=== PATIENT | female | born 1955 | race Caucasian/White ===

== ENCOUNTER 2017-08-12 09:50 | Outpatient (CLI) | payer MEDICARE, OTHER ==
--- NOTE | 2017-08-12 11:56 | PRG ---
DATE OF SERVICE: 08/12/2017 HISTORY: Ms. Cristy Calderon is a very pleasant 62-year-old who [facility] for evalua tion of a wound of the right elbow. The patient was last seen in the [facility] on 02/11/2017. At this time, the ulceration of the right elbow had healed completely. Dressing changes were discontin ued and the patient was discharged from clinic with followup on a p.r.n. basis. The patient states t emma that her right elbow wound recently recurred. She presents to clinic today with the ulceration dressed with Aquacel followed by bordered gauze. She is also wearing a protective device over her ri ght elbow. PHYSICAL EXAMINATION: VITAL SIGNS: Temperature 97.5, pulse 71, respirations 16, blood pressure 120/70. EXTREMITIES: The ulceration of the right elbow measures approximately 0.9 x 0.7 cm. Granulation tis ad is visible within the wound margins. No purulent drainage is associated with the wound. No eryt emily of the skin surrounding the wound is present. No maceration of the skin of the periwound is not ed. ASSESSMENT AND PLAN: 1. Right elbow ulceration as described above. Dressing changes of Promogran, Aquacel, and bordered gauze will be initiated today. These dressing changes are to be performed 3 times per week after pat ansing and irrigation. I will see Ms. Calderon again in 4 weeks. Ms. Calderon understands and is in agree ment with the preceding treatment plan. 2. Spina bifida.
[2017-08-12] MEDS ORDERED: Sodium Chloride 0.9% 15 ML NEB ONE (21:22)
== END 2017-08-12 09:51 | disposition home or self-care (01) ==
LOC: WCC 09:50
PROVIDERS: ATTEND Family Medicine
DX: L98.499 Non-pressure chronic ulcer of skin of other sites with unspecified severity (principal); Q05.9 Spina bifida, unspecified
CPT/HCPCS: A4218

== ENCOUNTER 2017-09-02 09:50 | Inpatient (IN) | payer MEDICARE ==
[2017-09-02 10:29] LABS: #Eosinphils 0.3 thou/uL (0.0-0.7); #Lymphocytes 1.4 thou/uL (1.20-3.40); #Monocytes 0.6 thou/uL (0.11-0.59); #Neutrophils 6.3 thou/uL (1.40-6.50); %Basophils 0.3 % (0.0-1.0); %Eosinophils 3.9 % (0.0-10.0); %Lymphocytes 16.4 % (21.0-51.0); %Monocytes 6.9 % (0.0-10.0); %Neutrophils 72.4 % (42.0-75.0); Hemoglobin 10.9 g/dL (12.0-16.0); Mean Corpuscular HGB CONC 31.9 g/dL (32.0-36.0); Mean Corpuscular Hemoglobin 29.8 pg (27.0-31.0); Mean Corpuscular Volume 93.3 fl (81.0-99.0); Mean Platelet Volume 7.4 fL (7.4-10.4); Platelet Count 278 thou/uL (130-400); RBC Distribution Width 13.3 % (11.5-14.5); Red Blood Cell (RBC) Count 3.65 mill/uL (4.20-5.40); White Blood Cell (WBC) Count 8.8 thou/uL (4.8-10.8)
--- NOTE | 2017-09-02 10:31 | RAD ---
CHEST 1 VIEW: Date: 09/02/17 HISTORY: Cough. FINDINGS: No comparison. The cardiac silhouette is magnified by projection. Pulmonary vasculature is engorged and accentuated by shallow inspiration. Bilateral perihilar infiltrates are apparent. There is no lobar consolidation or evidence of pneumothorax. IMPRESSION: Pulmonary vascular congestion. POS: [facility]
[2017-09-02 10:47] LABS: ALT (SGPT) 21 U/L (8-55); AST (SGOT) 22 U/L (5-34); Albumin 3.4 g/dL (3.4-4.8); Alkaline Phosphatase 116 U/L (40-150); Anion Gap 11 mmol/L (10-20); BUN (Urea Nitrogen) 12 mg/dL (9.8-20.1); Bilirubin, Total 0.6 mg/dL (0.2-1.2); Calc. Creatinine Clearance 0 mL/min (70-130); Calcium 9.1 mg/dL (7.8-10.44); Carbon Dioxide 35 mmol/L (23-31); Chloride 95 mmol/L (98-107); Estimated GFR-MDRD Greater than 90; Globulin 4.3 g/dL (2.4-3.5); Glucose 98 mg/dL (80-115); Potassium 4.1 mmol/L (3.5-5.1); Protein, Total 7.7 g/dL (6.0-8.3); Sodium 137 mmol/L (136-145)
[2017-09-02 11:40] LABS: CKMB 0.2 ng/mL (0-6.6); Troponin I 0.059 ng/mL (< 0.028)
[2017-09-02] MEDS ORDERED: Furosemide 40 MG/4 ML VIAL ONE (11:48)
[2017-09-02] MEDS ORDERED: Albuterol Sulfate 2.5 mg/3 ml Neb NEB PRN (13:15)
[2017-09-02] MEDS ORDERED: Acetaminophen 325 MG TAB PO PRN (13:30)
[2017-09-02] MEDS ORDERED: HYDROcodone/Acetaminophen 5/325 mg Tablet PO PRN (13:30)
[2017-09-02] MEDS ORDERED: FLU VACC QS2017-18 36 mo. & older 0.5 ML SYRINGE IM ONE (14:00)
[2017-09-02 14:22] LABS: Troponin I 0.057 ng/mL (< 0.028)
[2017-09-02 16:59] LABS: Troponin I 0.035 ng/mL (< 0.028)
--- NOTE | 2017-09-02 17:09 | HP ---
DATE OF SERVICE: 09/02/2017 CHIEF COMPLAINT: Shortness of breath. HISTORY OF PRESENT ILLNESS: This is a 62-year-old white female. She is living in an assisted living . She was developing some fluid in her lower extremities for the past 2-3 weeks and she is started o n diuretic, Lasix. For the past 2 days, she developed a fever of 101 and she was started on Tylenol. She was noted that today she is really very short of breath and coughing and saw her saturations dr opped to 70%, so the patient was brought to the ER for further evaluation. When the patient arrived in the ER, she had a chest x-ray showing evidence of pulmonary edema, but her BNP level was normal. She had evidence of fluid overload and she had evidence of fluid overload and was checked for influen za A and B which came back negative and she did mention that she had a flu shot this season. She als o had a pneumonia shot. The patient denies having any chest pain at this time. No nausea, no vomiting, no diarrhea, no const ipation. She does have elevated troponins in the ER, which are trending down. Most likely, this cou ld be exertional, demand ischemia. The patient did not have any other known medical issues except that she has a history of spina bifida since and she has been disabled using a walker. PAST MEDICAL HISTORY: History of spina bifida, wheelchair bound. PAST SURGICAL HISTORY: The patient had hysterectomy many years ago. SOCIAL HISTORY: Patient is a nonsmoker. No history of alcohol, no history of illicit drug use. FAMILY HISTORY: No significant family history of coronary artery disease or any premature deaths in the family. REVIEW OF SYSTEMS: All 12 systems are reviewed with the patient thoroughly and found to be negative at this time except the ones described in HPI. The following complete review of systems was negative, unless otherwise mentioned in the HPI or below : Constitutional: Weight loss or gain, sense of well-being, ability to conduct usual activities, ex ercise tolerance. Skin/Breast: Rash, itching, changes in hair growth or loss, nail changes, breast lumps, tenderness, swelling, nipple discharge. Eyes: Vision, double vision, tearing, blind spots, p ain. ENT/Mouth: Headaches (location, time of onset, duration, precipitating factors), vertigo, ligh theadedness, injury. Vision, double vision, tearing, blind spots, pain, nose bleeding, colds, obstruc tion, discharge, dental difficulties, gingival bleeding, dentures, neck stiffness, pain, tenderness, masses in thyroid or other areas. Cardiovascular: Precordial pain, substernal distress, palpitation s, syncope, dyspnea on exertion, orthopnea, nocturnal paroxysmal dyspnea, edema, cyanosis, hypertensi on, heart murmurs, varicosities, phlebitis, claudication. Respiratory: Pain, shortness of breath, w heezing, stridor, cough, hemoptysis, fever or night sweats. Gastrointestinal: Poor appetite, dyspha johana, indigestion, abdominal pain, heartburn, eructation, nausea, vomiting, hematemesis, jaundice, con stipation, or diarrhea, abnormal stools (kristie-colored, tarry, bloody, greasy, foul smelling), flatule nce, hemorrhoids, recent changes in bowel habits. Genitourinary: Urgency, frequency, dysuria, noctu pj, hematuria, polyuria, oliguria, unusual (or change in) color of urine, stones, hesitancy, change in size of stream, dribbling, acute retention or incontinence, libido, potency. Musculoskeletal: Pa in, swelling, redness or heat of muscles or joints, limitation, of motion, muscular weakness, atrophy , cramps. Neurologic/Psychiatric: Convulsions, paralyses, tremor, incoordination, paresthesias, dif ficulties with memory of speech, sensory or motor disturbances, or muscular coordination (ataxia, olamide mor), emotional problems, anxiety, depression, previous psychiatric care, unusual perceptions, halluc inations. Allergy/Immunologic: Skin rash, anemia, bleeding tendency, polydipsia, polyuria, intolera nce to heat or cold. ALLERGIES: CLINDAMYCIN AND PENICILLIN. HOME MEDICATIONS: None. PHYSICAL EXAMINATION: VITAL SIGNS: Blood pressure is 131/78, heart rate is 97, respiratory rate is 22, saturations 98%. GENERAL: The patient is moderately built and moderately nourished. She does not appear to be in acu te distress at this time. She is seen sitting at the bed 45 degrees inclination. HEENT: Atraumatic, normocephalic. PERRLA. Extraocular movements were intact. Oral mucosa is pink and moist. CARDIOVASCULAR: S1, S2 normal. No murmurs, rubs or gallops. LUNGS: Bilateral air entry was equal. Crackles were noted in the lower bases bilaterally. No acute signs of respiratory distress. ABDOMEN: Soft, nontender, no guarding, no rebound tenderness. Bowel sounds normal. MUSCULOSKELETAL: The patient has paraplegic below waist and has some puffy legs bilaterally with non pitting edema most likely lymphadenitis type. NEUROLOGIC: Cranial nerve examination II-XII are intact. No other focal neurologic deficits were no kevin except from the lower extremities being a paraplegic from . NECK: No thyromegaly, no JVD was noted. LABORATORY DATA: WBC 8.8, hemoglobin is 10.8, hematocrit is 34.1, platelets are 278. Sodium 137, po tassium 4.1, chloride is 95, BUN 12, creatinine 0.6. BNP 31.2, troponin 0.059, 0.057. Chest x-ray showing evidence of pulmonary edema. Chest x-ray has been reviewed by me. ASSESSMENT AND PLAN: 1. Acute hypoxic respiratory failure. 2. Acute diastolic congestive heart failure. 3. Possible viral pneumonia. 4. Non-ST elevation myocardial infarction. PLAN: 1. To start the patient on IV Lasix 40 mg IV b.i.d. and will closely monitor this patient. We will continue the patient on nasal cannula oxygen and will do DuoNeb treatments every 4-6 hours as needed. 2. Patient has elevated troponins. It could be from the demand ischemia from some pulmonary congest ion. We will consult Cardiology and will order a 2D echo to look for any evidence of coronary artery disease to look for any wall motion abnormality. 3. We will start the patient on Lovenox, levofloxacin 500 mg IV daily prophylactically to look for a ny development of bacterial pneumonia. We will send for the blood cultures and sputum cultures. 4. DVT prophylaxis. Lovenox 40 mg subcu daily. I spent 75 minutes with this patient. Of this, one hour is critical care time.
[2017-09-02] MEDS: Furosemide 40 MG/4 ML VIAL SLOW IVP SCH (17:43)
[2017-09-02] MEDS: Docusate 100 MG CAP PO SCH (20:46)
[2017-09-02] MEDS ORDERED: Carvedilol 3.125 MG TAB PO SCH (21:00)
--- NOTE | 2017-09-03 03:07 | CON ---
DATE OF CONSULTATION: 09/02/2017 REASON FOR CONSULTATION: Shortness of breath. HISTORY OF PRESENT ILLNESS: Ms. Calderon is a delightful 62-year-old woman. She has a long history of spina bifida. She has been unable to ambulate for quite some time due to spina bifida. She lives in a long term. She has been doing well, but the last day or two she had some fever to 101 and then started having hypoxemia, her oxygen saturations dropped to 70%. She was brought to the emergency room for evaluation. Chest x-ray was thought to be possibly pulmonary edema, but looks li ke there is a very poor inspiration, so it is unclear whether it is pulmonary edema, she was checked for influenza A and B which was negative. No chest pain. PAST MEDICAL HISTORY: Spina bifida. She is wheelchair bound. PAST SURGICAL HISTORY: Previous hysterectomy. SOCIAL HISTORY: Nonsmoker. No alcohol or tobacco. FAMILY HISTORY: Negative for heart disease at a young age. REVIEW OF SYSTEMS: Constitutional: No significant weight gain or loss. Vision: No changes. Hearing: No changes. Pu lmonary: No cough or wheezing. Gastrointestinal: No nausea, vomiting, diarrhea. PHYSICAL EXAMINATION: GENERAL: This is a pleasant 62-year-old woman in no distress. VITAL SIGNS: Her blood pressure 128/73, pulse is in the 90s. HEENT: Sclerae nonicteric. Mouth mucous membranes moist. NECK: Supple, no lymphadenopathy. LUNGS: Clear, no wheezing, rales or rhonchi. CARDIAC: Normal S1, normal S2. I do not hear a murmur, rub or gallop. ABDOMEN: Soft, nontender. EXTREMITIES: No clubbing or cyanosis. There is moderate edema. SKIN: Warm and dry. LABORATORY DATA: The potassium was 4.1. BNP surprisingly was normal at 31.2. Troponin 0.059, indet erminate. Chest x-ray was reported as possible pulmonary edema, but looking at the x-ray, it looks l buddy they are very shallow inspiration. I am really not convinced that it shows pulmonary edema, it s eems to me more like just a shallow inspiration, but I do not really think there is pulmonary edema. Echocardiogram showed normal left ventricular function, mild right ventricular dilatation. ASSESSMENT: 1. Shortness of breath of uncertain etiology, possibly diastolic dysfunction. 2. History of spina bifida, wheelchair bound. PLAN: 1. Would stop carvedilol at this time. The systolic function is normal and beta blockers are likely not to be helpful with diastolic dysfunction. 2. Continue diuretics now. 3. Agree with rechecking BNP. We will continue to follow with you.
[2017-09-03] MEDS: Furosemide 40 MG/4 ML VIAL SLOW IVP SCH ×2 (05:05→14:05)
[2017-09-03 05:27] LABS: #Eosinphils 0.2 thou/uL (0.0-0.7); #Lymphocytes 1.3 thou/uL (1.20-3.40); #Monocytes 0.7 thou/uL (0.11-0.59); #Neutrophils 6.2 thou/uL (1.40-6.50); %Basophils 0.2 % (0.0-1.0); %Eosinophils 2.7 % (0.0-10.0); %Lymphocytes 15.4 % (21.0-51.0); %Monocytes 8.3 % (0.0-10.0); %Neutrophils 73.4 % (42.0-75.0); Hemoglobin 10.5 g/dL (12.0-16.0); Mean Corpuscular HGB CONC 31.8 g/dL (32.0-36.0); Mean Corpuscular Hemoglobin 29.6 pg (27.0-31.0); Mean Corpuscular Volume 93.1 fl (81.0-99.0); Mean Platelet Volume 7.8 fL (7.4-10.4); Platelet Count 261 thou/uL (130-400); RBC Distribution Width 13.2 % (11.5-14.5); Red Blood Cell (RBC) Count 3.53 mill/uL (4.20-5.40); White Blood Cell (WBC) Count 8.5 thou/uL (4.8-10.8)
[2017-09-03 05:33] LABS: Anion Gap 12 mmol/L (10-20); BUN (Urea Nitrogen) 14 mg/dL (9.8-20.1); Calc. Creatinine Clearance 127 mL/min (70-130); Calcium 9.2 mg/dL (7.8-10.44); Carbon Dioxide 33 mmol/L (23-31); Chloride 92 mmol/L (98-107); Estimated GFR-MDRD Greater than 90; Glucose 105 mg/dL (80-115); Potassium 4.1 mmol/L (3.5-5.1); Sodium 133 mmol/L (136-145)
[2017-09-03] MEDS ORDERED: Sodium Chloride 0.9% 10 ML ONE (07:51)
[2017-09-03] MEDS: Docusate 100 MG CAP PO SCH ×2 (08:21→20:41)
[2017-09-03] MEDS: Enoxaparin Sodium 40 MG/0.4 ML SYRINGE SC SCH (08:22)
[2017-09-03] MEDS ORDERED: Lisinopril 2.5 MG TAB PO SCH (09:00)
[2017-09-03] MEDS ORDERED: Spironolactone 25 MG TAB PO SCH (09:00)
[2017-09-03 10:22] VITALS: BMI 37.0
[2017-09-03] MEDS ORDERED: Sodium Chloride 0.9% 1,000 ML IV SCH (14:00)
--- NOTE | 2017-09-03 14:24 | PDOC.PN ---
- Subjective Encounter Start Date: 09/03/17 Encounter Start Time: 14:20 Subjective: f/u for dyspnea and fever and ? CHF with normal BNP. Nsg reports -: hypotension after giving Lasix and Spironolactone. - Objective Resuscitation Status: Resuscitation Status FULL:Full Resuscitation MAR Reviewed: Yes Vital Signs & Weight: Vital Signs (12 hours) Temp Pulse Resp BP BP Pulse Ox 09/03/17 11:34 98.6 F 74 22 H 87/48 L 91 L 09/03/17 08:21 97 136/75 09/03/17 08:09 99.3 F 97 22 H 136/75 97 09/03/17 04:56 98.5 F 100 18 124/70 92 L Weight Admit Weight 182 lb 6.42 oz Weight 183 lb 9.6 oz I&O: 09/02/17 09/03/17 09/04/17 06:59 06:59 06:59 Intake Total 580 Output Total 1150 Balance -570 Result Diagrams: 09/03/17 04:51 09/03/17 04:51 Additional Labs: Accuchecks 09/03/17 11:16 POC Glucose 137 H Microbiology 09/02/17 10:20 Nasal swab Influenza Types A,B Direct EIA - Final 09/02/17 16:19 Venous blood - Left Hand Blood Culture - Preliminary Specimen has been received and culture in progress. No Growth to date. 09/02/17 16:09 Venous blood - Right Arm Blood Culture - Preliminary Specimen has been received and culture in progress. No Growth to date. Laboratory Tests 09/02/17 09/02/17 09/02/17 10:19 10:19 13:28 Hgb 10.9 L Troponin I 0.059 H 0.057 H B-Natriuretic Peptide 09/02/17 09/03/17 16:09 04:51 Hgb Troponin I 0.035 H B-Natriuretic Peptide 21.6 Radiology Reviewed by me: Yes (2D Echo - EF 55%, mild pulm htn) EKG Reviewed by me: Yes (Tele - SR in 90's) Phys Exam - Physical Examination alert, mild distress HEENT: PERRLA, oral pharynx no lesions Neck: no JVD, supple diminished in bases Cardiovascular: RRR Gastrointestinal: soft, non-tender, no distention, positive bowel sounds minimal peripheral edema Musculoskeletal: pulses present Neurological: moves all 4 limbs Psychiatric: A&O x 3 Skin: normal turgor, cap refill <2 seconds Dx/Plan (1) Acute respiratory failure with hypoxia Code(s): J96.01 - ACUTE RESPIRATORY FAILURE WITH HYPOXIA Status: Acute Comment: ? etiology, ? viral syndrome or early pneumonitis, continue O2 supplementation, Duonebs, Levaquin (2) Dyspnea Code(s): R06.00 - DYSPNEA, UNSPECIFIED Status: Acute Comment: ? etiology, see above, pulmonary support (3) Febrile illness, acute Code(s): R50.9 - FEVER, UNSPECIFIED Status: Acute Comment: ? viral syndrome , monitor temp curve (4) Hypotension, iatrogenic Code(s): I95.89 - OTHER HYPOTENSION Status: Acute Comment: D/C all diuretics , d/c Lisinopril, IV NS 1L bolus now, follow BP trend (5) Elevated troponin I level Code(s): R74.8 - ABNORMAL LEVELS OF OTHER SERUM ENZYMES Status: Acute Comment: ? demand ischemic state, follow clinically - Plan continue antibiotics, respiratory therapy, DVT proph w/SCDs IV NS bolus x 1L now -: D/C Lasix, Spironolactone and Lisinopril -: Consider Respiratory Virus Panel -: Contiue Levaquin -: Check Respiratory Virus Panel * .
[2017-09-03] MEDS ORDERED: CICLOPIROX TOP PRN (14:29)
[2017-09-03] MEDS: Sodium Chloride 0.9% 1,000 ML IV SCH (16:15)
[2017-09-03] MEDS ORDERED: Enoxaparin Sodium 80 MG/0.8 ML SYRINGE SC SCH (19:30)
[2017-09-03] MEDS: Ondansetron HCl/PF 4 MG/2 ML Vial IVP PRN (20:41)
[2017-09-04] MEDS: predniSONE 50 MG TAB PO SCH ×3 (00:14→11:32)
[2017-09-04] MEDS: Sodium Chloride 0.9% 1,000 ML IV SCH (00:14)
--- NOTE | 2017-09-04 00:29 | PRG ---
DATE OF SERVICE: 09/03/2017 SUBJECTIVE: Ms. Calderon had drop in blood pressure after intravenous diuretic. She said she is really not feeling any better. In fact, her blood pressure got as low as 76/50, it is up to 93/56 now. OBJECTIVE: VITAL SIGNS: Her blood pressure as outlined above. LUNGS: Clear. CARDIAC: Normal S1, normal S2. ABDOMEN: Soft, nontender. EXTREMITIES: There is mild edema. ASSESSMENT: 1. Hypoxemia of uncertain etiology. 2. Initially thought that perhaps she had diastolic heart failure, but she has had 2 normal BNPs and the chest x-ray to my interpretation really did not look like pulmonary edema. It does consider pul monary embolism. PLAN: 1. Diuretics have been stopped. 2. Give intravenous fluid. 3. She is allergic to IODINE, we will pretreat for iodine allergy then proceed with CT pulmonary ang iogram tomorrow.
[2017-09-04 05:28] LABS: #Eosinphils 0.1 thou/uL (0.0-0.7); #Lymphocytes 0.9 thou/uL (1.20-3.40); #Monocytes 0.3 thou/uL (0.11-0.59); #Neutrophils 7.6 thou/uL (1.40-6.50); %Basophils 0.3 % (0.0-1.0); %Eosinophils 0.9 % (0.0-10.0); %Lymphocytes 10.3 % (21.0-51.0); %Monocytes 3.8 % (0.0-10.0); %Neutrophils 84.7 % (42.0-75.0); Mean Corpuscular HGB CONC 32.3 g/dL (32.0-36.0); Mean Corpuscular Hemoglobin 30.2 pg (27.0-31.0); Mean Corpuscular Volume 93.3 fl (81.0-99.0); Mean Platelet Volume 7.7 fL (7.4-10.4); Platelet Count 211 thou/uL (130-400); RBC Distribution Width 13.4 % (11.5-14.5); Red Blood Cell (RBC) Count 2.98 mill/uL (4.20-5.40); White Blood Cell (WBC) Count 8.9 thou/uL (4.8-10.8)
[2017-09-04 05:35] LABS: Anion Gap 11 mmol/L (10-20); BUN (Urea Nitrogen) 22 mg/dL (9.8-20.1); Calc. Creatinine Clearance 92 mL/min (70-130); Calcium 8.3 mg/dL (7.8-10.44); Carbon Dioxide 30 mmol/L (23-31); Chloride 95 mmol/L (98-107); Estimated GFR-MDRD 69; Glucose 114 mg/dL (80-115); Potassium 4.1 mmol/L (3.5-5.1); Sodium 132 mmol/L (136-145)
[2017-09-04] MEDS ORDERED: Sodium Chloride 0.9% 1,000 ML IV SCH (08:31)
[2017-09-04] MEDS: Enoxaparin Sodium 40 MG/0.4 ML SYRINGE SC SCH (09:05)
[2017-09-04] MEDS: Docusate 100 MG CAP PO SCH ×2 (09:05→21:54)
[2017-09-04] MEDS ORDERED: diphenhydrAMINE 50 MG CAP PO SCH (11:30)
--- NOTE | 2017-09-04 13:45 | CT ---
CTA OF CHEST WITH CONTRAST: Date: 09/04/17 HISTORY: Low oxygen saturation and hypoxia. TECHNIQUE: Multiple contiguous axial images were obtained in a CTA of the chest with contrast per pulmonary embo lism protocol. 3D oblique MIP reformats and direct coronal reformats were performed. FINDINGS: The pulmonary arteries are well opacified without filing defects to suggest pulmonary emboli. The hea rt is normal in size without focal cardiac abnormality. No hilar or mediastinal lymphadenopathy seen. Atelectasis is seen in both lung bases, right greater than left. There is also atelectasis in the rig ht apex. No focal infiltrates are seen in the lungs. No suspicious pulmonary nodules are seen. No pne umothorax or pleural effusions are seen. There is a large diaphragmatic hernia containing predominantly peritoneal fat. This hernia is in the region of the gastroesophageal junction, but no significant herniation of stomach upward is seen. Degenerative changes are seen in the spine. The visualized subdiaphragmatic structures are unremarkab le. Degenerative changes are seen in the right shoulder. IMPRESSION: 1. No evidence of pulmonary thromboembolism. 2. Diaphragmatic hernia containing fat. POS: [facility]
--- NOTE | 2017-09-04 17:44 | PRG ---
DATE OF SERVICE: 09/04/2017 SUBJECTIVE: Ms. Calderon is doing better today. OBJECTIVE: VITAL SIGNS: Blood pressure is still relatively low 96/58, pulse 86 and regular. LUNGS: Clear. CARDIAC: Normal S1, normal S2. ABDOMEN: Soft, nontender. EXTREMITIES: Mild edema. CT pulmonary angiogram was negative for pulmonary embolism. CT did show atelectasis. BNP again is low. ASSESSMENT: 1. Hypoxemia. I suspect this is related to atelectasis from her scoliosis. Diaphragm is very high on the chest x-ray and her lungs are likely compressed. 2. No evidence of any congestive heart failure. 3. No pulmonary embolism. PLAN: For completeness to do adenosine Cardiolite stress testing, needed a two day protocol. The pa tient may likely to have an inferior defect. These diaphragms are extremely high. No further recomm endations at this point. Okay to Hep-Lock the IV as mentioned. No evidence of heart failure. She h ad hypotension with diuretics and no evidence of heart failure at all.
--- NOTE | 2017-09-04 18:54 | PDOC.PN ---
- Subjective Encounter Start Date: 09/04/17 Encounter Start Time: 18:40 Subjective: f/u for SOB, fever and ? pneumonitis and hypotension. Overall feeling -: better. Hypotension resolved and UOP increased with IVF's. - Objective Resuscitation Status: Resuscitation Status FULL:Full Resuscitation MAR Reviewed: Yes Vital Signs & Weight: Vital Signs (12 hours) Temp Pulse Resp BP Pulse Ox 09/04/17 16:58 87 20 99/52 L 92 L 09/04/17 14:05 98.1 F 83 19 113/60 92 L 09/04/17 08:58 98.6 F 86 20 96/58 L 97 Weight Admit Weight 182 lb 6.42 oz Weight 189 lb I&O: 09/03/17 09/04/17 09/05/17 06:59 06:59 06:59 Intake Total 580 2540 1770 Output Total 1150 750 800 Balance -570 1790 970 Result Diagrams: 09/04/17 05:08 09/04/17 05:08 Additional Labs: Microbiology 09/03/17 17:15 Nasopharyngeal swab Respiratory Virus Panel (PCR) (FLAVIO) - Final 09/02/17 10:20 Nasal swab Influenza Types A,B Direct EIA - Final 09/02/17 16:19 Venous blood - Left Hand Blood Culture - Preliminary Specimen has been received and culture in progress. No Growth to date. 09/02/17 16:19 Venous blood - Left Hand Blood Culture - Preliminary NO GROWTH AT 48 HOURS 09/02/17 16:09 Venous blood - Right Arm Blood Culture - Preliminary Specimen has been received and culture in progress. No Growth to date. 09/02/17 16:09 Venous blood - Right Arm Blood Culture - Preliminary NO GROWTH AT 48 HOURS Laboratory Tests 09/02/17 09/02/17 09/02/17 10:19 10:19 13:28 Hgb 10.9 L Sodium Troponin I 0.059 H 0.057 H B-Natriuretic Peptide 09/02/17 09/03/17 09/03/17 16:09 04:51 04:51 Hgb Sodium 133 L Troponin I 0.035 H B-Natriuretic Peptide 21.6 09/03/17 09/04/17 04:51 05:08 Hgb 10.5 L Sodium Troponin I B-Natriuretic Peptide 27.0 Radiology Reviewed by me: Yes (CTA chest - no PE, +diaphragmatic hernia) EKG Reviewed by me: Yes (Tele - SR in 70's) Phys Exam - Physical Examination Constitutional: NAD HEENT: PERRLA, oral pharynx no lesions Neck: no JVD, supple Respiratory: no wheezing, clear to auscultation bilateral Cardiovascular: RRR Gastrointestinal: soft, non-tender, no distention, positive bowel sounds Musculoskeletal: no edema, pulses present Psychiatric: A&O x 3 Skin: normal turgor, cap refill <2 seconds Dx/Plan (1) Acute respiratory failure with hypoxia Code(s): J96.01 - ACUTE RESPIRATORY FAILURE WITH HYPOXIA Status: Acute Comment: ? etiology, ? viral syndrome or early pneumonitis, continue O2 supplementation, Duonebs, Levaquin, Respiratory virus panel negative (2) Dyspnea Code(s): R06.00 - DYSPNEA, UNSPECIFIED Status: Acute Comment: ? etiology, see above, pulmonary support (3) Febrile illness, acute Code(s): R50.9 - FEVER, UNSPECIFIED Status: Acute Comment: ? viral syndrome , monitor temp curve (4) Hypotension, iatrogenic Code(s): I95.89 - OTHER HYPOTENSION Status: Acute Comment: D/C all diuretics , d/c Lisinopril, IV NS 1L bolus now, follow BP trend (5) Elevated troponin I level Code(s): R74.8 - ABNORMAL LEVELS OF OTHER SERUM ENZYMES Status: Acute Comment: ? demand ischemic state, follow clinically - Plan continue antibiotics, respiratory therapy, DVT proph w/SCDs Stable overall -: Continue Levaquin 500mg IV daily another 24h -: Continue Albuterol nebs prn -: Benadryl 25mg po q6h prn congestion -: Plan for Cardiolite stress test per Cardiology recs in am * AM lab: BMP, CBC
[2017-09-04] MEDS: diphenhydrAMINE 25 MG CAP PO PRN (21:54)
[2017-09-04] MEDS: Nystatin Powder 15 GM BOT TOP PRN (21:55)
[2017-09-05 05:23] LABS: #Lymphocytes 1.1 thou/uL (1.20-3.40); #Monocytes 0.9 thou/uL (0.11-0.59); %Basophils 0.2 % (0.0-1.0); %Eosinophils 0.4 % (0.0-10.0); %Lymphocytes 13.8 % (21.0-51.0); %Monocytes 10.8 % (0.0-10.0); %Neutrophils 74.8 % (42.0-75.0); Hemoglobin 9.4 g/dL (12.0-16.0); Mean Corpuscular Hemoglobin 29.8 pg (27.0-31.0); Mean Corpuscular Volume 92.9 fl (81.0-99.0); Platelet Count 237 thou/uL (130-400); Red Blood Cell (RBC) Count 3.16 mill/uL (4.20-5.40); White Blood Cell (WBC) Count 8.1 thou/uL (4.8-10.8)
[2017-09-05 05:51] LABS: Anion Gap 10 mmol/L (10-20); BUN (Urea Nitrogen) 23 mg/dL (9.8-20.1); Calc. Creatinine Clearance 130 mL/min (70-130); Carbon Dioxide 28 mmol/L (23-31); Chloride 99 mmol/L (98-107); Estimated GFR-MDRD Greater than 90; Glucose 121 mg/dL (80-115); Potassium 3.4 mmol/L (3.5-5.1); Sodium 134 mmol/L (136-145)
[2017-09-05] MEDS ORDERED: Regadenoson 0.4 MG/5 ML SYRINGE ONE (08:16)
[2017-09-05] MEDS: Docusate 100 MG CAP PO SCH ×2 (12:55→22:16)
--- NOTE | 2017-09-05 16:12 | PDOC.PN ---
- Subjective Encounter Start Date: 09/05/17 Encounter Start Time: 16:10 Subjective: f/u for hypotension, acute febrile illness and ? pneumonitis. All studies -: negative to date. Awaiting final cardiac stress testing per Cardiology -: recommendations. - Objective Resuscitation Status: Resuscitation Status FULL:Full Resuscitation MAR Reviewed: Yes Vital Signs & Weight: Vital Signs (12 hours) Temp Pulse Resp BP Pulse Ox 09/05/17 11:00 96.7 F L 80 17 99/61 94 L 09/05/17 07:40 97.7 F 71 18 108/62 96 09/05/17 04:25 98 Weight Admit Weight 182 lb 6.42 oz Weight 183 lb 14.4 oz I&O: 09/04/17 09/05/17 09/06/17 06:59 06:59 06:59 Intake Total 2540 2395 Output Total 750 1225 Balance 1790 1170 Result Diagrams: 09/05/17 05:01 09/05/17 05:01 EKG Reviewed by me: Yes (Tele - SR in 60's) Phys Exam - Physical Examination Constitutional: NAD HEENT: PERRLA, oral pharynx no lesions Neck: no JVD, supple Respiratory: no wheezing Cardiovascular: RRR Gastrointestinal: soft, non-tender, no distention, positive bowel sounds Musculoskeletal: no edema, pulses present Psychiatric: A&O x 3 Skin: normal turgor, cap refill <2 seconds Dx/Plan (1) Acute respiratory failure with hypoxia Code(s): J96.01 - ACUTE RESPIRATORY FAILURE WITH HYPOXIA Status: Acute Comment: ? etiology, ? viral syndrome or early pneumonitis, wean O2 supplementation, Duonebs, Levaquin, Respiratory virus panel negative (2) Dyspnea Code(s): R06.00 - DYSPNEA, UNSPECIFIED Status: Acute Comment: ? etiology, see above, pulmonary support (3) Febrile illness, acute Code(s): R50.9 - FEVER, UNSPECIFIED Status: Acute Comment: ? viral syndrome , monitor temp curve (4) Hypotension, iatrogenic Code(s): I95.89 - OTHER HYPOTENSION Status: Acute Comment: D/C all diuretics , d/c Lisinopril, IV NS 1L bolus now, follow BP trend, resolving (5) Elevated troponin I level Code(s): R74.8 - ABNORMAL LEVELS OF OTHER SERUM ENZYMES Status: Acute Comment: ? demand ischemic state, follow clinically - Plan continue antibiotics, social media strategist, DVT proph w/SCDs Stable overall -: Adenosine Stress test today, final results pending -: Wean off all O2 support -: Estrella prn -: Likely home in am after cardiac imaging * .
[2017-09-05] MEDS: diphenhydrAMINE 25 MG CAP PO PRN (16:33)
[2017-09-05] MEDS: Enoxaparin Sodium 40 MG/0.4 ML SYRINGE SC SCH (16:34)
[2017-09-05] MEDS: Nystatin Powder 15 GM BOT TOP PRN (22:16)
[2017-09-06] MEDS: Ondansetron HCl/PF 4 MG/2 ML Vial IVP PRN (03:00)
[2017-09-06] MEDS ORDERED: Sodium Chloride 0.9% 10 ML ONE (07:58)
[2017-09-06] MEDS: Enoxaparin Sodium 40 MG/0.4 ML SYRINGE SC SCH (08:12)
[2017-09-06] MEDS: Docusate 100 MG CAP PO SCH (08:12)
[2017-09-06 11:04] VITALS: BP 147/84; TEMP 97.9
[2017-09-06] MEDS: diphenhydrAMINE 25 MG CAP PO PRN (11:04)
--- NOTE | 2017-09-06 12:09 | NM ---
CARDIAC SPECT WITH EJECTION FRACTION AND WALL MOTION: HISTORY: 62-year-old female with history of chest pain. TECHNIQUE/FINDINGS: Lexiscan sestamibi study performed. Patient was injected with 30.8 mCi technetium-99m sestamibi intra venously for stress images and patient was injected with 31.0 mCi of technetium-99m sestamibi intrave nously for resting images. Multiple SPECT images in the short axis, vertical long axis, and horizontal long axis demonstrate no scan evidence for infarct or ischemia. TID: 0.89 LHR: 0.29 EDV: 46 mL EF: 89% MYOCARDIAL PERFUSION WALL MOTION: Wall motion is normal. IMPRESSION: Normal cardiac SPECT with ejection fraction and wall motion. POS: [facility]
--- NOTE | 2017-09-06 18:18 | PRG ---
DATE OF SERVICE: 09/06/2017 SUBJECTIVE: Ms. Calderon is doing well, no recurrent episodes of chest pain. OBJECTIVE: VITAL SIGNS: Blood pressure 147/84, pulse 70, temperature 97.9. LUNGS: Clear to auscultation. CARDIAC: Regular rate and rhythm. ABDOMEN: Soft, nontender, nondistended. Recent stress study dated 09/06/2017, LVEF estimated at greater than 65%, normal cardiac SPECT. IMPRESSION: Shortness of breath. RECOMMENDATIONS: Recent stress study was negative for ischemia. From a CV standpoint, we would be o danika for discharge with outpatient followup.
--- NOTE | 2017-09-06 20:05 | DIS ---
DATE OF ADMISSION: 09/02/2017 DATE OF DISCHARGE: 09/06/2017 DISCHARGE DIAGNOSES: 1. Acute hypoxic respiratory failure, questionable etiology, suspected pneumonitis. 2. Dyspnea secondary to acute hypoxic respiratory failure, questionable etiology, suspected pneumoni tis, resolved. 3. Acute febrile illness, resolving. 4. Iatrogenic hypotension, resolved. 5. Elevated troponin I secondary to demand ischemia. 6. History of spina bifida. CONSULTATIONS: Dr. Gregory and Dr. Jc with Cardiology Service. PERTINENT LABORATORY AND X-RAY FINDINGS: Sodium ranged between 132-137, potassium ranged between 3.4 -4.1. BNP ranged between 21.6-31.2. Troponin ranged between 0.035-0.0596. CBC showed a white blood cell count ranging between 8.1-8.9, hemoglobin ranged between 9.0-10.9. Blood cultures x2 from 08/24 showed no growth at 48 hours. Influenza A and B antigen dated 09/02/2017 negative. Respirato ry virus panel dated 09/03/2017 negative. Portable chest x-ray dated 09/02/2017 showed pulmonary vas cular prominence. Bilateral perihilar infiltrates. No lobar consolidation or pneumothorax. A 2D tr ansthoracic echocardiogram dated 09/02/2017 showed an ejection fraction of 55-60%. [id number] elevation of pulmonary artery pressure at [address] angiogram of the chest dated 09/04/2017 showed no evidence for pulmonary embolus. Diaphragmatic hernia. Cardiolite stress test dated 09/05/2017 s howed no evidence for reversible or fixed ischemia with a calculated ejection fraction of 89%. HOSPITAL COURSE: The patient was initially admitted to the telemetry unit after presenting with incr eased dyspnea with fever up to 101 degrees Fahrenheit, treated initially with Tylenol and supportive measures. The patient was apparently noted hypoxemic with O2 saturations in the 70% range, evaluated in the emergency room. The patient underwent general chest imaging showing questionable pulmonary v ascular prominence and bilateral perihilar infiltrates. The patient received IV Lasix after initial concern for possible congestive heart failure; however, a 2D transthoracic echocardiogram showed over all preserved ejection fraction in the 55-60% range and BNP analysis showed negative findings. The p atient was discontinued on IV Lasix therapy after developing hypotension and requiring increased oxyg en supplementation. The patient underwent evaluation for the potential infectious process; however, no specific organism was identified and the patient was ruled out for influenza. The patient did rec eive IV Levaquin 500 mg daily throughout the hospital course empirically. The patient did continue t o clinically improve over the hospital course with supportive measures and oxygen supplementation. T he patient underwent cardiac evaluation for ischemic rule out after initial troponin I noted to be mi ldly elevated. Cardiolite stress testing showed no evidence for reversible or fixed ischemia with a calculated ejection fraction of 89%. Current recommendations are for discontinuation of diuretic the rapy, previously taking Lasix prior to admission. Overall, the patient is ready for discharge on . DISCHARGE MEDICATIONS: 1. Levaquin 500 mg 1 tab p.o. daily x5 days. 2. Loprox 0.77% applied topically p.r.n. 3. Nystatin powder one application topically p.r.n. FOLLOWUP: The patient may follow up with her primary care provider, Dr. Rehan De Jesus within 7 days. CONDITION ON DISCHARGE: Stable. ACTIVITY: Ad pablo. DIET: Regular. CODE STATUS: FULL. DISPOSITION: Discharge to [facility], 09/06/2017. Total time preparing and coordinating discharge is 33 minutes.
--- NOTE | 2017-09-26 14:10 | EKG ---
Test Reason : Blood Pressure : / mmHG Vent. Rate : 089 BPM Atrial Rate : 089 BPM P-R Int : 158 ms QRS Dur : 082 ms QT Int : 342 ms P-R-T Axes : 024 -04 003 degrees QTc Int : 416 ms Normal sinus rhythm Cannot rule out Anterior infarct , age undetermined Abnormal ECG Confirmed by MARGARITA DOTY, BRENDA ([id number]), make up editor MULUGETA CAMP ([id number]) on 09/26/2017 2:09:40 PM Referred By: Confirmed By:BRENDA AVILA MD
== END 2017-09-06 18:09 | disposition home or self-care (01) | DRG 193 ==
LOC: ERS 09:50 → ERHOLD 11:37 → 2NO 13:15
PROVIDERS: ADMIT Family Medicine; ATTEND Family Medicine
PROC: 4A02XM4 Measurement of Cardiac Total Activity, External Approach (ICD-10-PCS; principal; 2017-09-02)
DX: J18.9 Pneumonia, unspecified organism (principal); J96.01 Acute respiratory failure with hypoxia; I95.89 Other hypotension; I24.8 Other forms of acute ischemic heart disease; M41.9 Scoliosis, unspecified; I10 Essential (primary) hypertension; Q05.9 Spina bifida, unspecified; Z99.3 Dependence on wheelchair
CPT/HCPCS: 36415; 36416; 51702; 71045; 71275; 78452; 80048; 80053; 82553; 83880; 84484; 85025; 87040; 87633; 89220; 93005; 93017; 93306; 94640; 94760; 96374; A4216; A9500; G8978-GP-CN; G8979-GP-CN; G8980-GP-CN; G8987-GO-CK; G8988-GO-CK; G8989-GO-CK; J1650; J1940; J1956; J2405; J2785; J7620

== ENCOUNTER 2017-09-16 11:11 | Outpatient (CLI) | payer MEDICARE, OTHER ==
--- NOTE | 2017-09-16 13:47 | PRG ---
DATE OF SERVICE: 09/16/2017 HISTORY: Ms. Cristy Calderon is a very pleasant 62-year-old, who presents to the [facility] for evalu ation of a wound of the right elbow. The patient was last seen in the Wound Center on 08/12/2017. T he patient states that, since then, the ulceration of the right elbow had healed completely. She sta bethel that the ulceration, however, recurred. She states that for the recurrent ulceration of her righ t elbow she has been receiving dressing changes of Promogran, Aquacel, and bordered gauze with a decr ease in the dimensions of her right elbow wound. PHYSICAL EXAMINATION: VITAL SIGNS: Temperature 97.4, pulse 73, respirations 16, blood pressure 123/67. EXTREMITIES: The ulceration of the right elbow measures approximately 0.4 x 0.3 cm. The dimensions of the wound at the time of the patient's visit on 08/12/2017 were approximately 0.9 x 0.7 cm. Granu lation tissue is visible within the wound margins. No purulent drainage is associated with the wound . No erythema of the skin surrounding the wound is present. No maceration of the skin of the periwo und is noted. ASSESSMENT AND PLAN: 1. Right elbow ulceration as described above. Dressing changes of Promogran and Aquacel, and border ed gauze will be continued 3 times per week after cleansing and irrigation with the assistance of [employer]. Ms. Calderon states she will contact the clinic in order to schedule a followup appointment. 2. Spina bifida.
[2017-09-18] MEDS ORDERED: Sodium Chloride 0.9% 15 ML NEB ONE (15:58)
== END 2017-09-16 11:12 | disposition home or self-care (01) ==
LOC: WCC 11:11
PROVIDERS: ATTEND Family Medicine
DX: L98.499 Non-pressure chronic ulcer of skin of other sites with unspecified severity (principal); Q05.9 Spina bifida, unspecified
CPT/HCPCS: 97602

== ENCOUNTER 2017-10-01 09:49 | Outpatient (CLI) | payer MEDICARE, OTHER ==
--- NOTE | 2017-10-01 12:57 | PRG ---
DATE OF SERVICE: 10/01/2017 HISTORY: Ms. Cristy Calderon is a very pleasant 62-year-old who presents to the [facility] Center for evalua tion of a wound of the right lateral foot. The patient states that she experienced respiratory distr ess and her dosage of Lasix was decreased. She states that she then developed edema of her right low er extremity. She states that her right foot was propped upon the foot rest of her wheelchair result ing in the wound of her right lateral foot. The wound had been kept clean and dry and covered. The patient has no other complaints today. She denies any fever or chills. PHYSICAL EXAMINATION: VITAL SIGNS: Temperature 97.3, pulse 65, respirations 17, blood pressure 118/63. EXTREMITIES: The ulceration of the right lateral foot measures approximately 1.8 x 1.1 cm. The woun d bed is entirely covered by dry stable eschar. No purulent drainage is associated with the wound. No cellulitis of the right foot is appreciated. No maceration of the skin of the periwound is noted. ASSESSMENT AND PLAN: 1. Ulceration of right lateral foot as described above. Dressing changes of a 4 x 4, followed by a stockinette the patient's sock are to be performed 3 times per week after cleansing and irrigation wi th the assistance of Home Health. The wound appears to be healing without complications or any signs of infection and Ms. Calderon will be discharged from clinic today with followup on a p.r.n. basis. 2. Spina bifida.
== END 2017-10-01 09:50 | disposition home or self-care (01) ==
LOC: WCC 09:49
PROVIDERS: ATTEND Family Medicine
DX: L97.419 Non-pressure chronic ulcer of right heel and midfoot with unspecified severity (principal); Q05.9 Spina bifida, unspecified
CPT/HCPCS: 97602

== ENCOUNTER 2017-10-14 09:45 | Outpatient (CLI) | payer MEDICARE, OTHER ==
--- NOTE | 2017-10-14 18:04 | PRG ---
DATE OF SERVICE: 10/14/2017 HISTORY: Ms. Cristy Calderon is a very pleasant 62-year-old who presents to the Wound Center for evalua tion of a wound of the right lateral foot. At the time of the patient's visit on 10/01/2017, Ms. Rowell stated that she had experienced respiratory distress and that her dosage of Lasix had been decreas ed. She stated that she then developed edema of her right lower extremity. She stated that her righ t foot was propped upon the footrest of her wheelchair resulting in the wound of her right lateral fo ot. Since the patient's last visit, Ms. Calderon has been receiving dressing changes of bordered gauze followed by a stockinette and sock 3 times per week with the assistance of Home Health. The patient has no other complaints today. She denies any fever or chills. PHYSICAL EXAMINATION: VITAL SIGNS: Temperature 97.4, pulse 72, respirations 16, blood pressure 118/58. EXTREMITIES: The ulceration of the right lateral foot measures approximately 1.8 x 0.9 cm. The dime nsions of the wound at the time of the patient's visit on 10/01/2017 were approximately 1.8 x 1.1 cm. The wound bed is almost entirely covered by dry stable eschar. No purulent drainage is associated with the wound. No cellulitis of the right foot is appreciated. No maceration of the skin of the pe riwound is noted. ASSESSMENT AND PLAN: 1. Ulceration of right lateral foot as described above. Dressing changes of bordered gauze followed by a stockinette and the patient's sock will be continued 3 times per week after cleansing and irrig ation with the assistance of Home Health. Again, the patient has been reassured that the wound appea rs to be healing without complications or any signs of infection. Arrangements will be made for the patient to receive a Heelift boot and Ms. Calderon will be seen in clinic in 1 week at which time she wi ll be given her Heelift boot. The patient understands and is in agreement with the preceding treatme nt plan. 2. Spina bifida.
== END 2017-10-14 09:46 | disposition home or self-care (01) ==
LOC: WCC 09:45
PROVIDERS: ATTEND Family Medicine
DX: L97.519 Non-pressure chronic ulcer of other part of right foot with unspecified severity (principal); Q05.9 Spina bifida, unspecified

== ENCOUNTER 2017-10-21 09:33 | Outpatient (CLI) | payer MEDICARE, OTHER ==
--- NOTE | 2017-10-21 11:37 | PRG ---
DATE OF SERVICE: 10/21/2017 HISTORY: Ms. Cristy Calderon is a very pleasant 62-year-old who presents to the Wound Center for evaluation of a wound of the right lateral foot. At the time of the patient's visit on 10/01/2017, Ms. Calderon stated that she had experienced respiratory distress and that her dosage of Lasix had been decreased. She stated that she then developed edema of her right lower extremity. She stated that her right foot was propped upon the foot rest of her wheelchair resulting in the wound of her right lateral foot. At the time of the patient's last visit , the patient was placed on dressing changes of bordered gauze followed by a stockinette and the patient's sock 3 times per week after cleansing and irrigation with the assistance of Home Health. Ms. Calderon has no complaints today. She denies any fever or chills. PHYSICAL EXAMINATION: VITAL SIGNS: Temperature 97.4, pulse 78, respirations 18, blood pressure 106/ 53. EXTREMITIES: The ulceration of the right lateral foot measures approximately 0.9 x 2.0 cm. The dimensions of the wound at the time of the patient's visit on 10/14/2017 were approximately 1.8 x 0.9 cm. The wound bed is entirely covered by dry stable eschar. No purulent drainage is associated with the wound. No cellulitis of the right foot is appreciated. No maceration of the skin of the periwound is noted. ASSESSMENT AND PLAN: 1. Ulceration of right lateral foot as described above. Dressing changes of bordered gauze followed by a stockinette and the patient's sock will again be continued 3 times per week after cleansing and irrigation with the assistance of Home Health. For the right elbow wound, the patient is to receive dressing changes of Promogran, Aquacel, and bordered gauze also 3 times per week after cleansing and irrigation with the assistance of Home Health. The patient understands and is in agreement with the preceding treatment plan. She states she would like to defer placement into a Heelift boot at the present time. I will see Ms. Calderon again in one week. 2. Spina bifida. MTDD
[2017-10-21] MEDS ORDERED: Sodium Chloride 0.9% 15 ML NEB ONE (14:30)
== END 2017-10-21 09:34 | disposition home or self-care (01) ==
LOC: WCC 09:33
PROVIDERS: ATTEND Family Medicine
DX: L97.519 Non-pressure chronic ulcer of other part of right foot with unspecified severity (principal); Q05.9 Spina bifida, unspecified
CPT/HCPCS: 97602; A4218

== ENCOUNTER 2017-10-28 09:29 | Outpatient (CLI) | payer MEDICARE, OTHER ==
[~2017-10-28 09:29] MED LIST: Lidocaine 2% Jelly 5 ML TUBE ONE; Sodium Chloride 0.9% 15 ML NEB ONE
--- NOTE | 2017-10-28 12:24 | PRG ---
DATE OF SERVICE: 10/28/2017 HISTORY: Ms. Cristy Calderon is a very pleasant 62-year-old, who presents to the [facility]ound Center for evalu ation of a wound of the right lateral foot. At the time of the patient's visit on 10/01/2017, Ms. Mae stated that she had experienced respiratory distress and that her dosage of Lasix had been decrea sed. She stated that she then developed edema of her right lower extremity. She stated that her rig ht foot was propped up on the foot rest of her wheelchair resulting in the wound of her right lateral foot. At the time of the patient's visit on 10/14/2017, the patient was placed on dressing changes of bordered gauze followed by a stockinette and the patient's sock 3 times per week after cleansing a nd irrigation with the assistance of Home Health. The patient has no complaints today. She denies a ny fever or chills. PHYSICAL EXAMINATION: VITAL SIGNS: Temperature 97.3, pulse 80, respirations 17, and blood pressure 123/62. EXTREMITIES: The ulceration of the right lateral foot measures approximately 1.8 x 1.0 cm. The dime nsions of the wound at the time of the patient's visit on 10/21/2017 were approximately 2.0 x 0.9 cm. Granulation tissue is visible at the periphery of the wound. Necrotic and nonviable tissue present within the wound margins was debrided with an excisional full-thickness debridement with the use of scissors. No purulent drainage is associated with the wound. No cellulitis of the right foot is yesy reciated. No maceration of the skin of the periwound is noted. A dorsalis pedis pulse is palpable o n the right. Edema of the right foot is present on exam today. ASSESSMENT AND PLAN: 1. Ulceration of right lateral foot as described above. Dressing changes of Promogran, Aquacel, and bordered gauze followed by a stockinette and the patient's sock will be performed 3 times per week a fter cleansing and irrigation with the assistance of Home Health. For the right elbow wound, the pat ient is to continue to receive dressing changes of Promogran, Aquacel, and bordered gauze also 3 time s per week after cleansing and irrigation again with the assistance of Home Health. The patient unde rstands and is in agreement with the preceding treatment plan, again the patient states that she woul d like to defer placement into a Heelift boot at the present time. I will see Ms. Calderon again in fou r weeks. 2. Spina bifida.
== END 2017-10-28 09:30 | disposition home or self-care (01) ==
LOC: WCC 09:29
PROVIDERS: ATTEND Family Medicine
DX: L97.519 Non-pressure chronic ulcer of other part of right foot with unspecified severity (principal); Q05.9 Spina bifida, unspecified
CPT/HCPCS: 11042; A4218

== ENCOUNTER 2017-11-25 09:19 | Outpatient (CLI) | payer MEDICARE, OTHER ==
--- NOTE | 2017-11-25 10:41 | PRG ---
DATE OF SERVICE: 11/25/2017 HISTORY: Ms. Cristy Calderon is a very pleasant 62-year-old who presents to the Wound Center for evalua tion of a wound of the right lateral foot. The patient also has a right elbow wound. The patient st ates that for both wounds she has been receiving dressing changes of Promogran, Aquacel, and bordered gauze 3 times per week after cleansing and irrigation. The patient is receiving dressing changes fo r her right lateral foot wound in conjunction with the use of a stockinette. Ms. Calderon states that t he wound of her right elbow has failed to decrease in its dimensions recently. The patient has no ot her complaints today. She denies any fever or chills. PHYSICAL EXAMINATION: VITAL SIGNS: Temperature 97.4, pulse 86, respirations 12, blood pressure 153/62. EXTREMITIES: The ulceration of the right lateral foot measures approximately 0.5 x 0.9 cm. The dime nsions of the wound at the time of the patient's visit on 10/28/2017 were approximately 1.8 x 1.0 cm. Granulation tissue is present within the wound margins. Necrotic and nonviable tissue present with in the wound margins was debrided with an excisional full-thickness debridement. No purulent drainag e is associated with the wound. No cellulitis of the right foot is appreciated. No maceration of th e skin of the periwound is noted. A dorsalis pedis pulse is palpable on the right. Edema of the rig ht foot is present on exam today. The wound of the right elbow measures approximately 0.8 x 0.7 cm. Granulation tissue is visible within the wound margins, but appears to be of poor quality. No purul ent drainage is associated with the wound. No erythema of the skin surrounding the wound is present. No maceration of the skin of the periwound is noted. The ulceration is located in an area of scar tissue. ASSESSMENT AND PLAN: 1. Ulceration of right lateral foot and of right elbow as described above. Dressing changes of Fibr acol, Aquacel, and bordered gauze followed by a stockinette are to be performed 3 times per week afte r cleansing and irrigation with the assistance of Home Health. For the right elbow wound the patient is to receive dressing changes of Fibracol, Aquacel, and bordered gauze also 3 times per week after cleansing and irrigation with the assistance of Home Health. Ms. Calderon understands and is in agreeme nt with the preceding treatment plan. Again, the patient states that she would like to defer placeme nt into a Heelift boot at the present time. I will see Ms. Calderon again in 4 weeks. 2. Spina bifida.
[2017-11-25] MEDS ORDERED: Sodium Chloride 0.9% 15 ML NEB ONE (17:55)
== END 2017-11-25 09:20 | disposition home or self-care (01) ==
LOC: WCC 09:19
PROVIDERS: ATTEND Family Medicine
DX: L97.519 Non-pressure chronic ulcer of other part of right foot with unspecified severity (principal); L98.499 Non-pressure chronic ulcer of skin of other sites with unspecified severity; Q05.9 Spina bifida, unspecified
CPT/HCPCS: 11042; A4218

== ENCOUNTER 2017-12-23 09:19 | Outpatient (CLI) | payer MEDICARE, OTHER ==
[~2017-12-23 09:19] MED LIST changes: -Lidocaine 2% Jelly 5 ML TUBE ONE
--- NOTE | 2017-12-23 10:17 | PRG ---
DATE OF SERVICE: 12/23/2017 HISTORY: Ms. Cristy Calderon is a very pleasant 62-year-old who presents to the Wound Center for evalua tion of a wound of the plantar surface of the left lateral foot. The patient also has a right elbow wound. For the wound of the right elbow the patient has been receiving dressing changes with the ass istance of Home Health. The patient utilizes stockinettes over the right and left feet and lower leg s for management of edema of her lower extremities. The patient has no other complaints today. She denies any fever or chills. PHYSICAL EXAMINATION: VITAL SIGNS: Temperature 97.8, pulse 94, respirations 17, blood pressure 129/65. EXTREMITIES: The ulceration of the left lateral foot over the plantar surface of the left foot measu res approximately 1.0 x 1.1 cm. Granulation tissue is present within the wound margins. No purulent drainage is associated with the wound. No cellulitis of the left foot is appreciated. No maceratio n of the skin of the periwound is noted. A dorsalis pedis pulse is not palpable on the left; however , significant edema of the left foot is present on exam today. A wound of the right elbow is present which measures approximately 0.6 x 0.8 cm. Granulation tissue is visible within the wound margins. No purulent drainage is associated with the wound. No erythema of the skin surrounding the wound is present. No maceration of the skin of the periwound is noted. The ulceration is located in an area of scar tissue. ASSESSMENT AND PLAN: 1. Ulceration of left lateral foot over the plantar surface of the foot and of the right elbow as de scribed above. Dressing changes of Medihoney, 4 x 4s and bordered gauze for both wounds are to be pe rformed every other day after cleansing and irrigation with the assistance of Home Health. A stockin ette will be continued over the left foot and lower legs. I will see Ms. Calderon again in 2 weeks. 2. Spina bifida.
== END 2017-12-23 09:20 | disposition home or self-care (01) ==
LOC: WCC 09:19
PROVIDERS: ATTEND Family Medicine
DX: L97.529 Non-pressure chronic ulcer of other part of left foot with unspecified severity (principal); L98.499 Non-pressure chronic ulcer of skin of other sites with unspecified severity; Q05.9 Spina bifida, unspecified
CPT/HCPCS: 97602; A4218

== ENCOUNTER 2018-01-06 09:32 | Outpatient (CLI) | payer MEDICARE, OTHER ==
--- NOTE | 2018-01-06 11:03 | PRG ---
DATE OF SERVICE: 01/06/2018 HISTORY: Ms. Cristy Calderon is a very pleasant 62-year-old who presents to the Wound Center for evalua tion of a wound of the plantar surface of the left lateral foot. The patient also has a right elbow wound. The patient has been receiving dressing changes of Medihoney for both wounds with the assista nce of Home Health. The patient reports erythema and drainage associated with the wound of the left lateral foot. The patient denies any fever or chills. PHYSICAL EXAMINATION: VITAL SIGNS: Temperature 97.9, pulse 73, respirations 18, blood pressure 101/57. EXTREMITIES: The ulceration of the left lateral foot over the plantar surface of the left foot measu res approximately 1.5 x 1.4 cm. Granulation tissue is present within the wound margins. Erythema of the left foot and lower leg is present on exam today and appears to be secondary to stasis changes a s opposed to an infectious process. No maceration of the skin of the periwound is noted. A posterio r tibial pulse is palpable on the left. Significant edema of the left foot and lower leg is present on exam today. A wound of the right elbow is still present. Granulation tissue is visible within th e wound margins. No purulent drainage is associated with the wound. No erythema of the skin surroun ding the wound is present. No maceration of the skin of the periwound is noted. The ulceration is l ocated in an area of scar tissue. ASSESSMENT AND PLAN: 1. Ulceration of left lateral foot over the plantar surface of the foot and of the right elbow as de scribed above. Dressing changes of Xeroform gauze and bordered gauze for the right elbow wound are t o be performed 2 times per week after cleansing and irrigation with the assistance of Home Health. F or the ulceration of the left lateral foot dressing changes of Xeroform gauze, Webril, and 3M Coban 2 layer compression system are to be performed also 2 times per week after cleansing and irrigation wi th the assistance of Home Health. I will see Ms. Calderon again in 2 weeks. The patient has also been given a prescription for Bactrim DS #20 one p.o. b.i.d. x10 days because of the erythema of the left foot and lower leg noted on today's exam. 2. Spina bifida.
== END 2018-01-06 09:33 | disposition home or self-care (01) ==
LOC: WCC 09:32
PROVIDERS: ATTEND Family Medicine
DX: L97.529 Non-pressure chronic ulcer of other part of left foot with unspecified severity (principal); S51.001A Unspecified open wound of right elbow, initial encounter; Q05.9 Spina bifida, unspecified
CPT/HCPCS: 97602

== ENCOUNTER 2018-01-20 09:02 | Outpatient (CLI) | payer MEDICARE, OTHER ==
[2018-01-20] MEDS ORDERED: Sodium Chloride 0.9% 15 ML NEB ONE (11:00)
--- NOTE | 2018-01-20 11:28 | PRG ---
DATE OF SERVICE: 01/20/2018 HISTORY: Ms. Cristy Calderon is a very pleasant 62-year-old who presents to the Wound Center for evalua tion of a wound of the plantar surface of the left lateral foot. The patient also has a right elbow wound. Since the patient's last visit, Ms. Calderon has been receiving dressing changes of Xeroform gau ze for both wounds with the assistance of Home Health. The patient denies any fever or chills. PHYSICAL EXAMINATION: VITAL SIGNS: Temperature 97.5, pulse 73, respirations 19, and blood pressure 123/72. EXTREMITIES: The ulceration of the left lateral foot over the plantar surface of the left foot measu res approximately 1.4 x 1.4 cm. The dimensions of the wound at the time of the patient's last visit were approximately 1.5 x 1.4 cm. Granulation tissue is present within the wound margins. No purulen t drainage is associated with the wound. No erythema of the skin surrounding the wound is present. No maceration of the skin of the periwound is noted. Edema of the left foot and lower leg is present on exam today. The wound of the right elbow is still present. Granulation tissue is visible within the wound margins. No purulent drainage is associated with the wound. No erythema of the skin surr ounding the wound is present. No maceration of the skin of the periwound is noted. The ulceration i s located in an area of scar tissue. ASSESSMENT AND PLAN: 1. Ulceration of left lateral foot over the plantar surface of the foot and of the right elbow as de scribed above. Dressing changes of Xeroform gauze and bordered gauze for the right elbow wound are t o be performed 2 times per week after cleansing and irrigation with the assistance of Home Health. F or the ulceration of the left lateral foot, dressing changes of Xeroform gauze, Webril, and 3M Coban 2 layer compression system are to be performed also 2 times per week after cleansing and irrigation w ith the assistance of Home Health. I will see Ms. Calderon again in two weeks. The importance of offlo ading of the left foot wound has been discussed with Ms. Calderon. She states she will obtain a Heelift boot. 2. Spina bifida.
== END 2018-01-20 09:03 | disposition home or self-care (01) ==
LOC: WCC 09:02
PROVIDERS: ATTEND Family Medicine
DX: L97.429 Non-pressure chronic ulcer of left heel and midfoot with unspecified severity (principal); S51.001D Unspecified open wound of right elbow, subsequent encounter; Q05.9 Spina bifida, unspecified
CPT/HCPCS: 97602; A4218

== ENCOUNTER 2018-02-03 09:13 | Outpatient (CLI) | payer MEDICARE, OTHER ==
--- NOTE | 2018-02-03 10:55 | PRG ---
DATE OF SERVICE: 02/03/2018 HISTORY: Ms. Cristy Calderon is a very pleasant 62-year-old who [facility] for evalua tion of a wound of the plantar surface of the left lateral foot. The patient also has a right elbow wound. Since the patient's last visit, Ms. Calderon has been receiving dressing changes of Xeroform gau ze and bordered gauze for the right elbow wound 2 times per week. For the ulceration of the left lat eral foot the patient has been receiving dressing changes of Xeroform gauze, Webril, and 3M Coban 2 l levi compression system also 2 times per week. These dressing changes are being performed with the [facility]. Today, Ms. Calderon reports the presence of a new blister of the right heel w hich measures approximately 5 x 3.5 cm. PHYSICAL EXAMINATION: VITAL SIGNS: Temperature 97.9, pulse 78, respirations 16, blood pressure 120/56. EXTREMITIES: The ulceration of the left lateral foot over the plantar surface of the left foot measu res approximately 1.0 x 0.8 cm. The dimensions of the wound at the time of the patient's last visit were approximately 1.4 x 1.4 cm. Granulation tissue is present within the wound margins. No purulen t drainage is associated with the wound. No erythema of the skin surrounding the wound is present. No maceration of the skin of the periwound is noted. Edema of the left foot and lower leg is present on exam today. The wound of the right elbow is still present. Granulation tissue is present within the wound margins. No purulent drainage is associated with the wound. No erythema of the skin surr ounding the wound is present. No maceration of the skin of the periwound is noted. The ulceration i s located in an area of scar tissue. A new blister of the right medial heel is present which measure s approximately 5.0 x 3.5 cm. The blister was unroofed with the use of scissors and the drainage con tained within the blister was sent for aerobic and anaerobic cultures. ASSESSMENT AND PLAN: 1. Ulceration of left lateral foot over the plantar surface of the foot and of the right elbow as de scribed above. The patient also has a new blister of the right medial heel which was unroofed in cli jayy today. For all three wounds, dressing changes of Xeroform gauze are to be performed 3 times per week after cleansing and irrigation with the assistance of Home Health. For the right and left lower extremity wounds, ABDs, Kerlix, and an Jaylen bandages will be utilized as secondary dressings. For th e right elbow wound bordered gauze will be utilized as a secondary dressing at the time of dressing c hanges. The preceding dressing changes are to be performed 3 times per week after cleansing and irri gation with the assistance of Home Health. I will see Ms. Calderon again in 3 weeks. Antibiotic therap y will be modified based upon the results of the cultures obtained today. Ms. Calderon has been given a prescription for Zyvox 600 mg #20 one p.o. b.i.d. x10 days. The importance of offloading of the lef t foot wound has been discussed again with Ms. Calderon. She states she will continue to utilize her [facility] boot. 2. Spina bifida.
[2018-02-03] MEDS ORDERED: Sodium Chloride 0.9% 15 ML NEB ONE (14:25)
== END 2018-02-03 09:14 | disposition home or self-care (01) ==
LOC: WCC 09:13
PROVIDERS: ATTEND Family Medicine
DX: L97.429 Non-pressure chronic ulcer of left heel and midfoot with unspecified severity (principal); L98.499 Non-pressure chronic ulcer of skin of other sites with unspecified severity; Q05.9 Spina bifida, unspecified
CPT/HCPCS: 29581; 87070; 87077; 87186; 87205; A4218

== ENCOUNTER 2018-03-01 09:21 | Outpatient (CLI) | payer MEDICARE, OTHER ==
--- NOTE | 2018-03-01 10:40 | PRG ---
DATE OF SERVICE: 03/01/2018 HISTORY: Ms. Cristy Calderon is a very pleasant 62-year-old who presents to the [facility] for evalua tion of a wound of the plantar surface of the left lateral foot. The patient also has a right elbow wound in addition to an ulceration of the right heel. The patient has been receiving dressing change s of Xeroform gauze for the preceding wounds 3 times per week after cleansing and irrigation with the assistance of Home Health. Ms. Calderon has no complaints today. She denies any fever or chills. PHYSICAL EXAMINATION: VITAL SIGNS: Temperature 97.4, pulse 72, respirations 18, blood pressure 113/68. EXTREMITIES: Only one ulceration of the right heel is present, which measures approximately 1.5 x 1. 0 cm. Granulation tissue is present within the wound margins. No purulent drainage is associated wi th the wound. No erythema of the skin surrounding the wound is present. No maceration of the skin o f the periwound is noted. A dorsalis pedis pulse is easily palpable on the right. Edema of the righ t foot and lower leg is present on exam today. The ulcerations of the left lateral foot and of the r ight elbow have healed completely. ASSESSMENT AND PLAN: 1. Ulceration of right heel as described above. The ulcerations of the right elbow and of the left lateral foot over the plantar surface of the left foot have healed completely. For the newly healed ulceration of the right elbow, the patient is to continue dressing changes of Xeroform gauze and bord ered gauze followed by her elbow guard 3 times per week after cleansing and irrigation with the [facility]. For the ulceration of the plantar surface over the left lateral foot, dressin g changes will be discontinued and the patient is to continue a stockinette to the left lower leg for edema management. For the ulceration of the right heel, the patient is to continue to receive dress ing changes of Xeroform gauze, ABD, Kerlix, and an Jaylen bandage 3 times per week after cleansing and i rrigation with the assistance of Home Health. The patient is to continue to utilize her Heelift boot for offloading of the right heel ulceration. The patient understands and is in agreement with the [facility] treatment plan. I will see Ms. Calderon again in two weeks. 2. Spina bifida.
[2018-03-01] MEDS ORDERED: Sodium Chloride 0.9% 15 ML NEB ONE (10:47)
[2018-03-01] MEDS ORDERED: Lidocaine 2% Jelly 5 ML TUBE ONE (10:47)
== END 2018-03-01 09:22 | disposition home or self-care (01) ==
LOC: WCC 09:21
PROVIDERS: ATTEND Family Medicine
DX: L97.419 Non-pressure chronic ulcer of right heel and midfoot with unspecified severity (principal)
CPT/HCPCS: 97602; A4218

== ENCOUNTER 2018-03-17 08:49 | Outpatient (CLI) | payer MEDICARE, OTHER ==
--- NOTE | 2018-03-17 10:15 | PRG ---
DATE OF SERVICE: 03/17/2018 HISTORY: Ms. Cristy Calderon is a very pleasant 62-year-old who presents to the [facility] Center for evalua tion of a right elbow wound in addition to an ulceration of the right heel. The patient has been rec eiving dressing changes of Xeroform gauze for the preceding wounds 3 times per week after cleansing a nd irrigation with the assistance of Home Health. The patient has no complaints today. She denies a ny fever or chills. PHYSICAL EXAMINATION: VITAL SIGNS: Temperature 97.7, pulse 72, respirations 20, blood pressure 135/71. EXTREMITIES: An ulceration of the right heel is present which measures approximately 0.5 x 0.4 cm. Granulation tissue is present within the wound margins. No purulent drainage is associated with the wound. No erythema of the skin surrounding the wound is present. No maceration of the skin of the p eriwound is noted. Less edema of the right foot and lower leg is present on exam today than at the t k[place] of the patient's last visit. A right elbow wound is present which measures approximately 0.4 x 0 .3 cm. This wound appears to be healing without complications or any signs of infection. ASSESSMENT AND PLAN: 1. Ulceration of right heel as described above. The patient also has a small ulceration of the righ t elbow. For the right elbow wound, the patient is to receive dressing changes of Xeroform gauze and bordered gauze followed by her elbow guard 3 times per week after cleansing and irrigation with the assistance of Home Health. For the right heel ulceration, the patient is to continue to receive dres sing changes of Xeroform gauze, ABD, Kerlix, and an Jaylen bandage. Also 3 times per week after cleansi ng and irrigation with the assistance of Home Health. The patient is to continue to utilize her Heel ift boot for offloading of the right heel ulceration. An Jaylen bandage will be applied to the left norman t and lower leg for edema management. The patient understands and is in agreement with the preceding treatment plan. I will see Ms. Calderon again in four weeks. 2. Spina bifida.
== END 2018-03-17 08:50 | disposition home or self-care (01) ==
LOC: WCC 08:49
PROVIDERS: ATTEND Family Medicine
DX: L97.419 Non-pressure chronic ulcer of right heel and midfoot with unspecified severity (principal); Q05.9 Spina bifida, unspecified
CPT/HCPCS: 97602

== ENCOUNTER 2018-04-21 08:45 | Outpatient (CLI) | payer MEDICARE, OTHER ==
--- NOTE | 2018-04-21 10:09 | PRG ---
DATE OF SERVICE: 04/21/2018 HISTORY: Ms. Cristy Calderon is a very pleasant 63-year-old who presents to the [facility] for evalua tion of a right elbow wound in addition to an ulceration of the right heel. At the time of the leonidas nt's last visit, Ms. Calderon was placed on dressing changes of Xeroform gauze for both wounds 3 times p er week after cleansing and irrigation with the assistance of Home Health. Ms. Calderon has no complain ts today. She denies any fever or chills. PHYSICAL EXAMINATION: VITAL SIGNS: Temperature 97.7, pulse 72, respirations 21, blood pressure 114/60. EXTREMITIES: The ulceration of the right heel has healed completely. The right elbow wound has also healed completely. A rash over the right and left groins is present on exam today. ASSESSMENT AND PLAN: 1. Ulceration of right heel and right elbow. As stated above, both wounds have healed completely. For the rash of the right and left groins, the patient has been placed on Mycostatin cream to be appl ied twice a day. The patient is to continue to utilize stockinettes over the right and left feet and lower legs for edema management. The patient has been told that she may resume utilizing her braces . I will see Ms. Calderon again in two weeks. 2. Spina bifida.
== END 2018-04-21 08:46 | disposition home or self-care (01) ==
LOC: WCC 08:45
PROVIDERS: ATTEND Family Medicine
DX: R21 Rash and other nonspecific skin eruption (principal); Q05.9 Spina bifida, unspecified

== ENCOUNTER 2018-05-13 09:23 | Outpatient (CLI) | payer MEDICARE, OTHER ==
--- NOTE | 2018-05-13 10:35 | PRG ---
DATE OF SERVICE: 05/13/2018 HISTORY: Ms. Cristy Calderon is a very pleasant 63-year-old, who presents to the [facility] for evalu ation of a right elbow wound in addition to an ulceration of the right heel. The patient also has a rash over the right and left groins. The patient has no complaints today. She denies any fever or c hills. PHYSICAL EXAMINATION: VITAL SIGNS: Temperature 97.5, pulse 65, respirations 18, and blood pressure 111/60. EXTREMITIES: The ulceration over the right heel has healed completely and remains healed. The right elbow wound has also healed completely and remains healed. The rash over the right and left groins is resolving. ASSESSMENT AND PLAN: 1. Ulceration of right heel and right elbow. As stated above, both wounds have healed completely an d remain healed. Also as stated above, the rash of the right and left groins is resolving. The alfredo bedoya was previously placed on Mycostatin cream to be applied twice a day. The patient is to continue to utilize stockinettes over the right and left feet and lower legs for edema management. The patien t was previously told that she may resume utilizing her braces. Ms. Calderon will be discharged from [facility] today with followup on a p.r.n. basis. 2. Spina bifida.
== END 2018-05-13 09:24 | disposition home or self-care (01) ==
LOC: WCC 09:23
PROVIDERS: ATTEND Family Medicine
DX: L97.419 Non-pressure chronic ulcer of right heel and midfoot with unspecified severity (principal); L98.499 Non-pressure chronic ulcer of skin of other sites with unspecified severity; R21 Rash and other nonspecific skin eruption; R60.0 Localized edema; Q05.9 Spina bifida, unspecified
CPT/HCPCS: 97602